=== PATIENT | male | born 1990 | race Caucasian/White ===

== ENCOUNTER 2023-09-05 14:54 | Emergency (ER) | payer SELFPAY ==
[~2023-09-05] VITALS: Ht 172.7 cm; Wt 102.2 kg
[2023-09-05] MEDS ORDERED: ALBU6.7H6 INH (16:15)
[2023-09-05] MEDS ORDERED: DOXY-443 PO (16:16)
[2023-09-05] MEDS ORDERED: PRED20TA PO (16:16)
[2023-09-05 16:37] VITALS: BP 139/85; TEMP 98.3; O2SAT 97
== END 2023-09-05 16:39 | disposition home or self-care (01) ==
LOC: M ED 14:54
DX: J06.9 Acute upper respiratory infection, unspecified (principal); J45.909 Unspecified asthma, uncomplicated; Z87.891 Personal history of nicotine dependence; Z79.52 Long term (current) use of systemic steroids; Z79.899 Other long term (current) drug therapy

== ENCOUNTER → 2024-03-02 | Outpatient (CLI) | payer OTHER ==
[~2024-03-02] MED LIST: ALBU6.7H6 INH; DOXY-323 PO; PRED20TA PO
== END ==
LOC: M SLEEP HO 11:28
PROVIDERS: ATTEND Physician Assistant
DX: G47.30 Sleep apnea, unspecified (principal); R40.0 Somnolence; R06.83 Snoring

== ENCOUNTER → 2025-06-26 | Outpatient (REF) | payer OTHER ==
[~2025-06-26] MED LIST changes: -DOXY-323 PO; +DOXY-441 PO
[2025-06-26 13:33] LABS: TOTAL 25(OH) VITAMIN D 14.2 NG/ML (20.0-100.0)
[2025-06-26 13:35] LABS: ALT/SGPT 61 U/L (7.0-40); AST/SGOT 24 U/L (<34); CALCIUM LEVEL 9.3 MG/DL (8.5-10.1); CARBON DIOXIDE LEVEL 28 MMOL/L (20-31); CHLORIDE LEVEL 103 MMOL/L (98-107); CHOLESTEROL LEVEL 217 MG/DL (<200); CHOLESTEROL RISK RATIO 5.05 (<5); CREATININE FOR GFR 1.07 MG/DL (0.70-1.30); GLOMERULAR FILTRATION RATE > 90.0 (>60); LDL CHOLESTEROL 140.3 MG/DL (<100); NON-HDL-C 174.1 MG/DL; POTASSIUM SERUM 4.5 MMOL/L (3.5-5.1); SODIUM LEVEL 141 MMOL/L (136-145); TRIGLYCERIDES LEVEL 169 MG/DL (<150)
[2025-06-26 15:52] LABS: GC DNA AMPLIFICATION NEGATIVE (NEGATIVE)
[2025-06-26 16:01] LABS: Trichomonas vaginalis (AMP) NOT DETECTED (NEGATIVE)
[2025-06-26 17:38] LABS: ESTIMATED AVERAGE GLUCOSE 105.0 MG/DL (60-110)
[2025-06-26 18:07] LABS: HIV 1&2 SCREEN NEGATIVE (NEGATIVE)
[2025-06-26 18:14] LABS: HEPATITIS C VIRUS ABY INDEX < 0.02 INDEX (<0.8)
== END ==
LOC: M LAB REF 12:06
PROVIDERS: ATTEND Physician Assistant
DX: Z11.9 Encounter for screening for infectious and parasitic diseases, unspecified (principal); E66.9 Obesity, unspecified; E55.9 Vitamin D deficiency, unspecified

== ENCOUNTER → 2025-07-11 | Outpatient (REF) | payer OTHER ==
[2025-07-17 22:02] LABS: TESTOSTERONE FREE (DIRECT) 104.6 pg/mL (35.0-155.0); TESTOSTERONE TOTAL FOR T&D 434.0 ng/dL (250-1100)
== END ==
LOC: M LAB REF 11:57
PROVIDERS: ATTEND Physician Assistant
DX: R45.86 Emotional lability (principal)